=== PATIENT | female | born 1965 | race Caucasian/White ===

== ENCOUNTER → 2022-11-17 09:18 | Outpatient (BNVA) | payer OTHER, SELFPAY | PROVIDERS: PCP Family Medicine; Visit Provider Family Medicine | DX: Z00.00 Encounter for general adult medical examination without abnormal findings (principal); R53.83 Other fatigue; F41.9 Anxiety disorder, unspecified; F32.A Depression, unspecified | CPT/HCPCS: 80053; 80061; 82306; 82607; 84443; 85025 ==

== ENCOUNTER 2023-11-25 09:34 | Emergency (ER) | payer OTHER, SELFPAY ==
[2023-11-25 09:38] VITALS: BP 152/93; PULSE 107; RESP 16; TEMP 36.9; O2SAT 96; BMI 32.9
--- NOTE | 2023-11-25 09:39 | ECG_ITS ---
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 Measurements Intervals [place] Rate: 109 P: 71 SC: 160 QRS: 46 QRSD: 81 T: 69 QT: 323 QTc: 437 Interpretive Statements SINUS TACHYCARDIA POSSIBLE LEFT ATRIAL ENLARGEMENT [-0.1mV P-WAVE IN V1/V2] MINIMAL ST DEPRESSION [0.025+ mV ST DEPRESSION] Compared to ECG 11/25/2023 08:50:31 Sinus rhythm no longer present ST (T wave) deviation still present Electronically Signed On 11-25-2023 13:31:40 CDT by Brandon Almonte M.D. [id number]
--- NOTE | 2023-11-25 09:39 | XR_ITS ---
WS: [id number] Examination: XR chest 1V portable [id number] Reason for Exam: cp Date: November 25, 2023 Comparison: None. Findings: The cardiomediastinal silhouette is within normal limits. There is no failure or effusion. There is no consolidation. XR/XR chest 1V portable [id number] Impression: No acute lung process is appreciated.
--- NOTE | 2023-11-25 10:13 | ED_ITS ---
HPI - General Adult 2 General: Chief complaint: General Medical Stated complaint: heart issue from dr office Time Seen by Provider: 11/25/23 09:42 Source: patient Mode of arrival: ambulatory Limitations: no limitations History of Present Illness: Patient is a nice 58-year-old female with a history of anxiety/depression and migraine headaches currently on escitalopram, buspirone, and topamax here after she was sent from her [facility] primary care office. Patient states beginning yesterday she has had horrible horrible horrible heartburn. She states she has no history of heartburn but thought it was related to this as it felt like a burning sensation in the middle of her chest. She does report some chest pressure as well as nausea. Today she has felt slightly lightheaded and off . She reportedly had an EKG performed at her primary care office with some concerns for ST depression and thus referred to the emergency department. She has no personal history of cardiac disease but states she does have a family history of this. She does report a positive home COVID antigen test last week. She reports a lingering dry nonproductive cough since. She also feels bloated and states she had diarrhea yesterday. Denies shortness of breath or difficulty breathing. She arrives slightly tachycardic and hypertensive. She has no history of hypertension. Onset (ago): day(s) (yesterday) Quality: burning Pain Consistency: intermittent Exacerbating factors: none Associated symptoms: Reports chest pain and nausea; Deny dyspnea, headache(s), malaise, rash, palpitations, syncope or vomiting Treatments prior to arrival: none Related Data Previous Rx's Medication Instructions Recorded betamethasone valerate 0.1 % 1 applic topical BID PRN skin 11/17/22 topical cream irritation #45 grams escitalopram oxalate 20 mg tablet 20 mg PO DAILY #90 tabs 11/17/22 cholecalciferol (vitamin D3) 1,250 1,250 mcg PO .weekly #12 tabs 12/22/22 mcg (50,000 unit) tablet buspirone 5 mg tablet 5 mg PO BID PRN anxiety #60 tabs 07/03/23 topiramate 50 mg tablet (Topamax) 50 mg PO BID #60 tabs 07/03/23 Allergies Allergy/AdvReac Type Severity Reaction Status Date / Time Penicillins Allergy unknown Verified 11/25/23 09:46 Review of Systems 2 Const: Reports: fatigue; Denies: fever(s), chills, body aches or malaise Eyes: Denies: change in vision, blurry vision, photophobia, floaters or seeing flashes Card: Reports: chest pain and lightheadedness; Denies: palpitations, irregular heart rhythm, edema, swelling of feet/ankles, syncope, pre-syncope, dyspnea on exertion, orthopnea, leg pain with exertion or acrocyanosis Resp: Reports: non-productive cough; Denies: dyspnea, productive cough, wheezing, stridor, pain on inspiration, hemoptysis or chest congestion GI: Reports: nausea, heartburn, diarrhea and bloating; Denies: abdominal pain or vomiting : Denies: flank pain, difficulty voiding, dysuria, urinary frequency, urinary urgency or urinary hesitancy Musc: Denies: neck pain, back pain, extremity pain, extremity swelling or joint pain Skin/Breast: Denies: rash Neuro: Denies: headache(s), numbness in extremities, weakness in extremities, sensory changes or dizziness PFSH ED 2 PFSH: Medical History Depression Anxiety History of diverticulitis Surgical History History of partial colectomy diverticular disease History of cholecystectomy Family History Mother Congestive heart failure (CHF) Hypertension Father Diabetes Grandfather Stroke Denies family history of Dementia Chronic kidney disease (CKD) Cancer Social History Smoking and tobacco/nicotine status: never used tobacco/nicotine Alcohol intake: never Substance/Drug Use: never Lives independently: Yes Household members: none Marital status: / Number of children: 2 Number of grandchildren: 1 Current occupational status: employed 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 [employer] Pets and animals: Yes Pets & animals: dog(s) Pets & animal details: jessica coon Viry/Tenriism: Adventism Physical Exam 2 Const: COMMON NORMALS: no acute distress, average body habitus, patient oriented x3, no limitations, healthy appearing, alert and well nourished G ENERAL APPEARANCE: cooperative ORIENTATION/CONSCIOUSNESS: Yes awake, Yes oriented to person, Yes oriented to place and Yes oriented to time OTHER: hypertensive during my assessment with BP in the 160s/110 HENMT: COMMON NORMALS: normocephalic and atraumatic HEAD & SCALP: normal to inspection, normocephalic and atraumatic Eye: GENERAL EYE: appearance normal, both eyes and all related structures Neck/C-Spine: COMMON NORMALS: full ROM, no lymphadenopathy, supple and no meningeal signs Chest: COMMONS NORMALS: normal inspection of the chest and normal palpation of entire chest wall Resp: COMMON NORMALS: normal respiratory effort and clear to auscultation bilaterally AUSCULTATION: clear to auscultation bilaterally Cardio: COMMON NORMALS: regular rhythm RATE: tachycardic RHYTHM: regular rhythm GI: COMMON NORMALS: Normal to inspection, nondistended, normoactive bowel sounds present, Soft to palpation, No hepatosplenomegaly present and no masses INSPECTION: Yes normal to inspection AUSCULTATION: Yes normoactive bowel sounds PALPATION: Yes Soft to palpation, Yes Tenderness to palpation present (GI) (fairly tender to epigastric region), No Guarding due to palpation present (GI), No Rigid due to palpation and Yes No hepatosplenomegaly present : COMMON NORMALS: Yes no CVA tenderness BLADDER/KIDNEY EXAM: Yes no CVA tenderness Back/Pelvis: COMMON NORMALS: no CVA tenderness and thoracic and lumbar spine normal to inspection Extremity: COMMON NORMALS: normal to inspection, capillary refill normal, no clubbing, cyanosis or edema, no calf tenderness and no pedal edema GENERAL: Y es normal exam except as noted Neuro: YULIYA COMA SCALE: document GCS findings Yuliya coma scale eye opening: Spontaneous [place] coma scale verbal response: Orientated Yuliya coma scale motor response: Obey commands Yuliya coma scale total score: 15 COMMON NORMALS: patient oriented x3, moves all extremities, no focal motor deficits, no sensory deficits noted and gait normal SENSORIUM/ORIENTATION: Yes alert, Yes oriented to person, Yes oriented to place and Yes oriented to time MENINGEAL SIGNS: Yes no meningeal signs Skin: COMMON NORMALS: no rashes or lesions noted GENERAL SKIN EXAM: no rashes or lesions noted Course 2 Vital Signs: Vital signs: Vital Signs Temperature 98.5 F 11/25/23 09:38 Pulse Rate 107 H 11/25/23 09:38 Respiratory Rate 16 11/25/23 09:38 Blood Pressure 152/93 11/25/23 09:38 Pulse Oximetry 96 11/25/23 09:38 Oxygen Delivery Me thod Room Air 11/25/23 09:38 MDM - General Adult Medical Decision Making Patient clinically appears in no acute distress. She has not had any active chest pain during her ED stay. ED workup including CBC, CMP, BNP, baseline and 2-hour troponin, baseline/repeat EKGs, CXR, and D-dimer. Her baseline and 2- hour troponins are unremarkable. Her BNP is normal. D-dimer is slightly elevated even at her age adjusted thus CTA imaging was ordered. Suspicion was slightly higher as she was tachycardic upon arrival and had known COVID last week. This was negative for PE. Incidentaloma discussed with patient with recommendation for interval follow-up in 4 to 6 weeks. Her EKGs are non- ischemic. At this time patient was instructed to follow up with PCP and they can order outpatient stress test imaging if indicated. Return precautions discussed. Medical Records I reviewed the patient's medical records. Lab Data I reviewed the patient's lab results. 11/25/23 10:37 11/25/23 10:37 Radiology Impressions Chest X-Ray 11/25/23 09:39 Impression: No acute lung process is appreciated. Chest CTA 11/25/23 11:21 IMPRESSION: 1. No evidence of pulmonary embolus. 2. No acute pulmonary infiltrates. Hazy bibasilar atelectasis. 3. Irregular slightly spiculated nodular opacity RIGHT lower lobe measuring 1.[address] follow-up in 4 to 6 weeks. If persistent, recommend further evaluation with PET/CT. 4. Prior cholecystectomy. Laboratory Results WBC 5.57 10^3/uL (3.29-11.43) 11/25/23 10:37 RBC 4.82 10^6/uL (3.85-5.65) 11/25/23 10:37 Hgb 14.40 g/dL (11.27-16.99) 11/25/23 10:37 Hct 45.7 % (36-47) 11/25/23 10:37 MCV 94.8 fl (85-98) 11/25/23 10:37 MCH 29.9 pg (27-33) 11/25/23 10:37 MCHC 31.5 g/dL (30-55) 11/25/23 10:37 RDW 13.1 % (12.1-15.1) 11/25/23 10:37 Plt Count 327 10^3/cmm (157-399) 11/25/23 10:37 MPV 10.2 fL (7.4-10.4) 11/25/23 10:37 Neut % (Auto) 54.8 % 11/25/23 10:37 Lymph % (Auto) 30.2 % 11/25/23 10:37 [place] % (Auto) 6.8 % 11/25/23 10:37 Eos % (Auto) 6.5 % 11/25/23 10:37 Baso % (Auto) 1.3 % 11/25/23 10:37 Neut # (Auto) 3.06 10^3/uL (1.8-7.7) 11/25/23 10:37 Lymph # (Auto) 1.7 10^3/uL (0.8-4.8) 11/25/23 10:37 [place] # (Auto) 0.4 10^3/uL (0.2-0.9) 11/25/23 10:37 Eos # (Auto) 0.4 10^3/uL (0.0-0.8) 11/25/23 10:37 Baso # (Auto) 0.1 10^3/uL (0.0-0.1) 11/25/23 10:37 Nucleated RBC % (auto) 0 % 11/25/23 10:37 Nucleated RBCs # 0.0 /100WBC 11/25/23 10:37 D-Dimer 0.72 ug/mLFEU (0-0.59) H 11/25/23 10:37 Sodium 136 mmol/L (136-145) 11/25/23 10:37 Potassium 4.0 mmol/L (3.5-5.1) 11/25/23 10:37 Chloride 103 mmol/L (98-107) 11/25/23 10:37 Carbon Dioxide 18 mmol/L (22-29) L 11/25/23 10:37 Anion Gap 19.0 (5-19) 11/25/23 10:37 BUN 14 mg/dL (8-23) 11/25/23 10:37 Creatinine 0.7 mg/dL (0.5-0.9) 11/25/23 10:37 GFR Calculation 85.4 mL/min (90-130) L 11/25/23 10:37 Glucose 92 mg/dL (65-115) 11/25/23 10:37 Calculated Osmolality 282 mOsm/kg (285-295) L 11/25/23 10:37 Calcium 10.1 mg/dL (8.5-10.5) 11/25/23 10:37 Total Bilirubin 0.5 mg/dL (0.15-1.2) 11/25/23 10:37 AST 21 U/L (0-32) 11/25/23 10:37 ALT 23 U/L (0-33) 11/25/23 10:37 Alkaline Phosphatase 125 U/L (35-105) H 11/25/23 10:37 Troponin T Baseline < 6 ng/L (0-10) 11/25/23 10:37 Troponin T 120 Minute 6.00 ng/L (0-10) 11/25/23 12:40 Delta Troponin T 0.23651 ABS# (0-10) 11/25/23 12:40 NT-Pro-B Natriuret Pep < 36 pg/mL (0-125) 11/25/23 10:37 Total Protein 8.1 g/dL (6.6-8.7) 11/25/23 10:37 Albumin 4.2 g/dL (3.5-5.2) 11/25/23 10:37 Globulin 3.9 g/dL (1.3-4.6) 11/25/23 10:37 Lipase 11 U/L (13-60) L 11/25/23 10:37 All radiology interpretation(s) finalized by discharge EKG Data EKG 1: EKG interpretation date: 11/25/23 EKG interpretation time: 09:37 Prior EKG tracings: not available for review Interpretation: Sinus tachycardia Rate 109 HI and QTc intervals normal Nonspecific ST depression changes Computer generated interpretation: Chest X-Ray 11/25/23 09:39 Impression: No acute lung process is appreciated. Chest CTA 11/25/23 11:21 IMPRESSION: 1. No evidence of pulmonary embolus. 2. No acute pulmonary infiltrates. Hazy bibasilar atelectasis. 3. Irregular slightly spiculated nodular opacity RIGHT lower lobe measuring 1.[address] follow-up in 4 to 6 weeks. If persistent, recommend further evaluation with PET/CT. 4. Prior cholecystectomy. EKG 2: EKG interpretation date: 11/25/23 EKG interpretation time: 11:47 Prior EKG tracings: available for review Interpretation: Sinus rhythm Rate 90 Normal HI and QTc intervals No acute changes when compared to previous Computer generated interpretation: Chest X-Ray 11/25/23 09:39 Impression: No acute lung process is appreciated. Chest CTA 11/25/23 11:21 IMPRESSION: 1. No evidence of pulmonary embolus. 2. No acute pulmonary infiltrates. Hazy bibasilar atelectasis. 3. Irregular slightly spiculated nodular opacity RIGHT lower lobe measuring 1.[address] follow-up in 4 to 6 weeks. If persistent, recommend further evaluation with PET/CT. 4. Prior cholecystectomy. Discharge Plan Discharge Patient Disposition: Home Clinical Impression: Chest pressure Condition: Stable Prescriptions: No Action escitalopram oxalate 20 mg tablet 20 mg PO DAILY Qty: 90 3RF betamethasone valerate 0.1 % cream 1 applic topical BID PRN (Reason: skin irritation) Qty: 45 0RF cholecalciferol (vitamin D3) 1,250 mcg (50,000 unit) tablet 1,250 mcg PO .weekly Qty: 12 0RF buspirone 5 mg tablet 5 mg PO BID PRN (Reason: anxiety) Qty: 60 5RF topiramate [Topamax] 50 mg tablet 50 mg PO BID Qty: 60 5RF Discharge Orders: Discharge ED (Routine); Ordered 11/25/23 Ordered By: Hilary Anaya Referrals: Za Orozco MD [Primary Care Provider] - Activity Restrictions/Additional Instructions: As we discussed I would like you to reach out to your primary care provider next week. If symptoms persist they may recommend cardiac stress test imaging. As we discussed I would like you to return to the emergency department for onset of severe chest pain, shortness of breath, difficulty breathing, lightheadedness/dizziness/passing out episodes, palpitations, or any other concerns you may have. Hope you begin to feel better soon. Coding Level of Care Code ED Emr Implementation Specialist for Endy Hutchins
[2023-11-25 10:44] LABS: Basophils # 0.1 10^3/uL (0.0-0.1); Basophils % 1.3 %; Eosinophils # 0.4 10^3/uL (0.0-0.8); Eosinophils % 6.5 %; Hematocrit 45.7 % (36-47); Lymphocytes # 1.7 10^3/uL (0.8-4.8); Lymphocytes % 30.2 %; Mean Corpuscular HGB Conc 31.5 g/dL (30-55); Mean Corpuscular Hemoglobin 29.9 pg (27-33); Mean Corpuscular Volume 94.8 fl (85-98); Mean Platelet Volume 10.2 fL (7.4-10.4); Monocytes # 0.4 10^3/uL (0.2-0.9); Monocytes % 6.8 %; Neutrophils # 3.06 10^3/uL (1.8-7.7); Neutrophils % 54.8 %; Nucleated Red Blood Cells % 0 %; Platelet Count 327 10^3/cmm (157-399); Red Blood Count 4.82 10^6/uL (3.85-5.65); Red Cell Distribution Width 13.1 % (12.1-15.1); White Blood Count 5.57 10^3/uL (3.29-11.43)
[2023-11-25] MEDS: lidocaine 2% viscous 15 ML, aluminum-mag hydrox-simethicon 30 ML, sucralfate oral liq 1 GM PO (10:55)
[2023-11-25] MEDS: metoprolol tartrate 1 mg/1 mL SDV 5 mL 2.5 MG IVP (10:55)
[2023-11-25 11:00] VITALS: BP 131/89; PULSE 90; O2SAT 90
[2023-11-25 11:00] LABS: D Dimer 0.72 ug/mLFEU (0-0.59)
[2023-11-25 11:06] LABS: Troponin(5th) Baseline < 6 ng/L (0-10)
[2023-11-25 11:11] LABS: Alanine Aminotransferase 23 U/L (0-33); Albumin Level 4.2 g/dL (3.5-5.2); Alkaline Phosphatase 125 U/L (35-105); Aspartate Amino Transferase 21 U/L (0-32); Blood Urea Nitrogen 14 mg/dL (8-23); Calcium 10.1 mg/dL (8.5-10.5); Carbon Dioxide 18 mmol/L (22-29); Chloride 103 mmol/L (98-107); Creatinine Clr Calc Pharmacy 105.5835; Globulin 3.9 g/dL (1.3-4.6); Glomerular Filtration Rate 85.4 mL/min (90-130); Glucose 92 mg/dL (65-115); Lipase 11 U/L (13-60); NT Pro B Type Natriuretic Pept < 36 pg/mL (0-125); Osmolality Calculated 282 mOsm/kg (285-295); Sodium 136 mmol/L (136-145); Total Bilirubin 0.5 mg/dL (0.15-1.2); Total Protein 8.1 g/dL (6.6-8.7)
--- NOTE | 2023-11-25 11:21 | CT_ITS ---
WS: [id number] CTA OF THE CHEST WITH PULMONARY EMBOLISM PROTOCOL TECHNIQUE: High-resolution contrast enhanced CTA of the chest with coronal and sagittal reformatted i saras with pulmonary embolism protocol. MIP images are also reviewed. CLINICAL INFORMATION: Tachycardia, elevated D-dimer, recent COVID COMPARISON: None. DLP: 389.[address] scans at [facility] use at least one of these dose optimization techniques: automated e xposure control; mA and/or kV adjustment per patient size (includes targeted exams where dose is matc hed to clinical indication); or iterative reconstruction. FINDINGS: Proximal main pulmonary arteries are normal. Normal segmental and subsegmental pulmonary arteries. No evidence of pulmonary embolus. Chronic emphysematous changes. Bibasilar atelectasis. No mediastinal or hilar lymphadenopathy. No axillary lymphadenopathy. Partially visualized adrenal gl ands are normal. Cholecystectomy clips. Small esophageal hiatal hernia. Irregular slightly spiculated nodular opacity RIGHT lower lobe measuring 1.1 cm. Recommend interval f ollow-up in 4 to [address]/CT angio chest PE protcl [id number] IMPRESSION: 1. No evidence of pulmonary embolus. 2. No acute pulmonary infiltrates. Hazy bibasilar atelectasis. 3. Irregular slightly spiculated nodular opacity RIGHT lower lobe measuring 1. [address] follow-up in 4 to 6 weeks. If persistent, recommend fu rther evaluation with PET/CT. 4. Prior cholecystectomy.
--- NOTE | 2023-11-25 11:39 | ECG_ITS ---
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 Measurements Intervals [place] Rate: 90 P: 60 PA: 175 QRS: 47 QRSD: 85 T: 50 QT: 369 QTc: 452 Interpretive Statements SINUS RHYTHM POSSIBLE LEFT ATRIAL ENLARGEMENT [-0.1mV P-WAVE IN V1/V2] POSSIBLE RIGHT VENTRICULAR CONDUCTION DELAY [RSR (QR) IN V1/V2] Compared to ECG 11/25/2023 09:37:00 Sinus tachycardia no longer present ST (T wave) deviation no longer present Electronically Signed On 11-25-2023 13:32:15 CDT by Brandon Almonte M.D. [id number]
[2023-11-25] MEDS: iohexol 350 mg/mL 500 mL Btl (per mL) IV (11:45)
[2023-11-25 12:00] VITALS: BP 133/86; PULSE 86; O2SAT 90
[2023-11-25 13:00] VITALS: BP 148/82; PULSE 89; O2SAT 91
[2023-11-25 13:04] LABS: Troponin 5 2HR Delta 0.00001 ABS# (0-10)
[2023-11-25 13:41] VITALS: BP 163/93; PULSE 92; O2SAT 92
== END 2023-11-25 13:42 | disposition home or self-care (01) ==
PROVIDERS: Emergency Medicine; Emergency Provider Physician Assistant; PCP Family Medicine
DX: R07.89 Other chest pain (principal); R00.0 Tachycardia, unspecified
CPT/HCPCS: 36415; 71045; 71275; 80053; 83690; 83880; 84484; 85025; 85378; 93005; 96374; 99285; J3490; Q9967

== ENCOUNTER 2024-06-27 14:05 | Outpatient (CLI) | payer OTHER, SELFPAY ==
--- NOTE | 2024-06-27 14:10 | XR_ITS ---
WS: [id number] KUB, AP view, 06/27/2024 Clinical Data: epigastric tenderness, r/o free air Comparison: None. Findings: No abnormal intraabdominal masses or calcifications are seen. There is no dilatated small bowel or evidence of obstruction. There is a minimal amount of fecal material in the colon. There are right upper quadrant cholecystectomy clips. XR/XR KUB [id number] Impression: Negative KUB.
== END 2024-06-27 14:06 | disposition home or self-care (01) ==
LOC: RAD 14:09
PROVIDERS: PCP Family Medicine; Visit Provider Family Medicine
DX: R10.13 Epigastric pain (principal); Z90.49 Acquired absence of other specified parts of digestive tract
CPT/HCPCS: 74018

== ENCOUNTER 2024-07-02 16:49 | Outpatient (CLI) | payer OTHER, SELFPAY ==
--- NOTE | 2024-07-02 17:15 | CTR_ITS ---
PROCEDURE INFORMATION: Exam: CT Abdomen With Contrast Exam date and time: 07/02/2024 5:28 PM Age: 59 years old Clinical indication: Abdominal pain; Prior surgery; Surgery date: 6+ months; Surgery type: Gallbladder; Severe epigastric pain x several months, getting worse TECHNIQUE: Imaging protocol: Computed tomography of the abdomen with contrast. Radiation optimization: All CT scans at this facility use at least one of these dose optimization techniques: automated exposure control; mA and/or kV adjustment per patient size (includes targeted exams where dose is matched to clinical indication); or iterative reconstruction. Contrast material: OMNIPAQUE 350; Contrast volume: 100 ml; Contrast route: INTRAVENOUS (IV); COMPARISON: CR XR KUB [id number] 06/27/2024 2:14 PM RADIATION DOSE METRICS: Total DLP (mGy-cm): 541.13 FINDINGS: Liver: Normal. No mass. Gallbladder and biliary ducts: The gallbladder has been resected. Pancreas: Normal. No ductal dilation. Spleen: Normal. No splenomegaly. Adrenal glands: Normal. No mass. Kidneys: Normal. No hydronephrosis. Stomach and bowel: Visualized stomach and bowel are unremarkable. No obstruction. No mucosal thickening. Intraperitoneal space: Unremarkable. No free air. No significant fluid collection. Vasculature: Unremarkable. No abdominal aortic aneurysm. Lymph nodes: Unremarkable. No enlarged lymph nodes. Bones/joints: Unremarkable. No acute fracture. No dislocation. Soft tissues: Unremarkable. CT/CT abdomen w con* [id number] IMPRESSION: No acute findings.
[2024-07-02 17:23] LABS: Blood Urea Nitrogen 12 mg/dL (8-23); Glomerular Filtration Rate 50.5 mL/min (90-130)
[2024-07-02] MEDS: iohexol 350 mg/mL 500 mL Btl (per mL) IV (17:42)
== END 2024-07-02 16:50 | disposition home or self-care (01) ==
PROVIDERS: PCP Family Medicine; Visit Provider Family Medicine
DX: R10.13 Epigastric pain (principal)
CPT/HCPCS: 74160; 82565; 84520

== ENCOUNTER 2024-07-26 06:35 | Day surgery (SDC) | payer OTHER, SELFPAY ==
--- NOTE | 2024-07-26 06:10 | W.PM.OPSUD ---
Surgery/Procedure H&P Update DATE OF PROCEDURE: July 26, 2024 DATE H&P PERFORMED: 07/11/24 H&P UPDATE INFORMATION: I have reviewed H&P completed within last 30 days, I have examined patient prior to procedure, No changes to prior documentation, Changes to prior documentation as noted here and Risks and benefits of the procedure reviewed PLANNED PROCEDURE: Operation Date: 07/26/24 07:40 Proposed Procedures p EGD 34692 R10.13(Not Applicable) - Brendan Pantoja MD
[2024-07-26 06:40] VITALS: BP 150/97; PULSE 112; RESP 16; TEMP 36.4; O2SAT 93; BMI 33.4
[2024-07-26] MEDS: sodium chloride 0.9% 1,000 ML 15 ML IV (06:47)
--- NOTE | 2024-07-26 06:52 | P.ANESASSM_ITS ---
Pre-Anesthetic Assessment Height/Weight: Height 1.73 m Weight 99.79 kg Temp Pulse Resp BP Pulse Ox O2 Del Method 97.6 F 112 H 16 150/97 93 Room Air 07/26/24 06:40 07/26/24 06:40 07/26/24 06:40 07/26/24 06:40 07/26/24 06:40 07/26/24 06:40 Preop Diagnosis: epigastric pain Operation Date: 07/26/24 07:40 Proposed Procedures p EGD 50346 R10.13(Not Applicable) - Brendan Pantoja MD Familial anesthetic complications: none Was Beta Karen taken within 24 hours: N/A Was Clonidine taken within 24 hours: N/A Last intake: Intake Last Liquid Date 07/25/24 Last Liquid Time 22:00 Last Solid Date 07/25/24 Last Solid Time 17:00 Social No alcohol and No tobacco Exam alert, oriented x 3, clear to auscultation bilaterally and regular rate & rhythm Airway Submandibular: within normal limits Cervical ROM: within normal limits Dentition: chipped Comments: Comments: TM distance <3 missing jaw teeth bilaterally noted. Pulmonary None reported CV/HEM Hypertension patient states chest pressure is listed in history related to abdominal pain work up didn't indicate it was cardiac in origin per patient. None reported patient denies renal issues labs last month indicated creatinine of 1.1 Hepatic None reported GI Hiatal Hernia epigastric pain. Metabolic obese Musc/skel None reported Neuropsych Anxiety and Depression Anesthetic Plan Anesthesia: MAC Medications/Allergies Home Medications ?Medication ?Instructions ?Recorded ?Confirmed ?Last Taken ?Type betamethasone valerate 0.1 % 1 applic topical BID PRN skin 12/16/23 07/26/24 Unknown Rx topical cream irritation #45 grams escitalopram oxalate 20 mg tablet 20 mg PO DAILY #90 t abs 12/16/23 07/26/24 07/25/24 Rx buspirone 5 mg tablet 5 mg PO BID PRN anxiety #60 tabs 06/11/24 07/26/24 07/25/24 Rx topiramate 50 mg tablet (Topamax) 50 mg PO BID #60 tab s 06/11/24 07/26/24 07/25/24 Rx amitriptyline 25 mg tablet 25 mg PO .qhs #90 tabs 06/0907/26/24 07/25/24 Rx famotidine 40 mg tablet 40 mg PO BID #60 tabs 07/26/24 07/25/24 Rx ondansetron 4 mg disintegrating 4 mg PO Q8H PRN nausea and 06/27/24 07/26/24 1 Week Ago Rx tablet vomiting #10 tabs ~ 5 pantoprazole 40 mg tablet,delayed 40 mg PO BID #60 tab s 06/27/24 07/26/24 07/25/24 Rx release sucralfate 1 gram tablet (Carafate) 1 g PO TID #90 tab s 06/27/24 07/26/24 07/25/24 Rx Allergies Allergy/AdvReac Type Severity Reaction Status Date / Time Penicillins Allergy unknown Verified 07/23/24 08:26 Current Medications Generic Name Dose Route Start Last Admin Trade Name Freq PRN Reason Stop Dose Admin Sodium Chloride 1,000 mls @ 15 mls/hr 07/26/24 06:34 07/26/24 06:47 Sodium Chloride 0.9% IV 07/27/24 06:33 15 mls/hr .Q24H PRN Administration COLONOSCOPY FLUIDS PFSH Anesthesia Medical History Depression Anxiety History of diverticulitis Surgical History (Updated 07/11/24 @ 09:07 by ALESIA Guo) History of partial colectomy diverticular disease History of cholecystectomy Family History Mother Congestive heart failure (CHF) Hypertension Father Diabetes Grandfather Stroke Denies family history of Dementia Chronic kidney disease (CKD) Cancer Social History Smoking and tobacco/nicotine status: never used tobacco/nicotine Alcohol intake: never Substance/Drug Use: never Lives independently: Yes Household members: none Marital status: / Number of children: 2 Number of grandchildren: 1 Current occupational status: employed 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
[2024-07-26 07:21] VITALS: PULSE 99; RESP 18; TEMP 36.4; O2SAT 97
[2024-07-26 07:32] VITALS: BP 130/86; PULSE 99; RESP 18; TEMP 36.6; O2SAT 97
--- NOTE | 2024-07-26 12:50 | ANE.PACU2 ---
Inpatient post-anesthesia follow up: Airway intact: Yes Vital signs: Temperature 97.8 F Pulse Rate 99 Respiratory Rate 18 Blood Pressure 130/86 Pulse Oximetry 97 Oxygen Delivery Me thod Room Air Oxygen Flow Rate Fraction of Inspir ed Oxygen Hydration adequate: Yes Nausea and vomiting: No Pain level: 2 Mental status: Baseline
== END 2024-07-26 07:49 | disposition home or self-care (01) ==
PROVIDERS: PCP Family Medicine; Visit Provider Surgery
PROC: 0DJ08ZZ Inspection of Upper Intestinal Tract, Via Natural or Artificial Opening Endoscopic (ICD-10-PCS; principal; 2024-07-26 07:40)
DX: K29.50 Unspecified chronic gastritis without bleeding (principal); K29.00 Acute gastritis without bleeding; K44.9 Diaphragmatic hernia without obstruction or gangrene; I10 Essential (primary) hypertension; Z79.899 Other long term (current) drug therapy; E66.9 Obesity, unspecified; Z68.33 Body mass index [BMI] 33.0-33.9, adult; Z88.0 Allergy status to penicillin; Z90.49 Acquired absence of other specified parts of digestive tract
CPT/HCPCS: 43239; 88305; 88342; J2250; J2405; J2704; J7030; J9999